=== PATIENT | female | born 1955 | race Caucasian/White ===

== ENCOUNTER 2017-06-05 15:14 | Emergency (ER) | payer OTHER ==
[~2017-06-05] VITALS: Ht 160 cm; Wt 61.4 kg
[2017-06-05 15:16] VITALS: BP 137/79; PULSE 76; RESP 14; TEMP 98.5; O2SAT 98
--- NOTE | 2017-06-05 15:53 | PD ---
HPI Chief Complaint: Musculoskeletal Complaint Time Seen by Provider: 15:41 Travel History International Travel<30 days: No Contact w/Intl Traveler<30days: No Traveled to known affect area: No History of Present Illness HPI 62-year-old female patient with history of right knee ACL repair done in April 26 in [place], is currently on vacation here in [place], and the for the past 2 weeks has been having increased pains in the right knee. She states that one day she did walk more and go downstairs but the pain that she had initially went away and then is back. She had talked to her orthopedics doctor 5 days ago and was told it was normal. She states that it hurts now with movements and walking. She denies any other issues. Modifying Factors: None Associated Signs & Symptoms: Right knee pain Risk Factors: Surgery last month PFSH Social History Tobacco Use: No Allergies-Medications (Allergen,Severity, Reaction): Coded Allergies: acetaminophen (Verified Allergy, Severe, Hallucinations, 06/05/17) meperidine (Verified Allergy, Severe, Hallucinations, 06/05/17) oxycodone (Verified Allergy, Severe, Hallucinations, 06/05/17) phenazopyridine (Verified Allergy, Severe, Swelling, 06/05/17) propoxyphene (Verified Allergy, Severe, 06/05/17) sulfamethoxazole (Verified Allergy, Severe, Swelling, 06/05/17) trimethoprim (Verified Allergy, Severe, Swelling, 06/05/17) adhesive (Verified Allergy, Intermediate, Rash, 06/05/17) naproxen (Verified Allergy, Intermediate, Hives, 06/05/17) tramadol (Verified Allergy, Intermediate, Nausea/Vomiting, 06/05/17) Reported Meds & Prescriptions Reported Meds & Active Scripts Active Reported Omeprazole 40 Mg Cap 40 Mg DAILY Ibuprofen 600 Mg Tab 600 Mg PO Q6H PRN Review of Systems Except as stated in HPI: all other systems reviewed are Neg Physical Exam Narrative GENERAL: Well-nourished, well-developed elderly white female patient in no acute distress. SKIN: Focused skin assessment warm/dry. HEAD: Normocephalic. EYES: No scleral icterus. No injection or drainage. NECK: Supple, trachea midline. No JVD or lymphadenopathy. CARDIOVASCULAR: Regular rate and rhythm without murmurs, gallops, or rubs. RESPIRATORY: Breath sounds equal bilaterally. No accessory muscle use. GASTROINTESTINAL: Abdomen soft, non-tender, nondistended. EXTREMITIES: No clubbing, cyanosis, or edema. No joint tenderness, effusion, or edema noted. Nontender range of motion of the right knee. No significant effusion identified. No calf tenderness. Bilateral Homans sign negative. MUSCULOSKELETAL: No cyanosis, or edema. BACK: Nontender without obvious deformity. No CVA tenderness. Data Data Last Documented VS Vital Signs Date Time Temp Pulse Resp B/P (MAP) Pulse Ox O2 Delivery O2 Flow Rate FiO2 06/05/17 15:16 98.5 76 14 137/79 (98) 98 Orders Orders Knee, Complete (4vws) (06/05/17 15:37) Us Leg Venous Doppler (06/05/17 15:41) [facility] Medical Decision Making Medical Screen Exam Complete: Yes Emergency Medical Condition: Yes Medical Record Reviewed: Yes Interpretation(s) Last 24 hours Impressions Knee X-Ray 06/05/17 1537 Signed Impressions: Service Date/Time: Monday, June 05, 2017 15:48 - CONCLUSION: Negative for acute process. Tim Steele MD FACR Differential Diagnosis Postop pain versus right knee strain versus acute fracture Narrative Course I do not see any signs of significant joint effusion or any tenderness on palpation, nontender range of motion. On evaluation this does not have the findings are consistent with significant septic arthritis. She apparently was seen at urgent care and sent in for joint tap. X-ray did not show any signs of acute fractures. Ultrasound shows no DVT. I have talked to the patient regarding the risks and benefits of doing a knee tap in order to evaluate for septic arthritis, including introduction of infection, bleeding, damage to structures, and the patient is declining at this time. In addition, she had talked to her orthopedic surgeon regarding the same thing just 5 days ago when he had told her that this is normal. At this point, I would refer her back to orthopedics Dr. Tate for any worsening in symptoms, and as needed. Rest the joint. The plan was discussed with her and she states understanding. Diagnosis Primary Impression: Strain of knee and leg, right Disposition: 01 DISCHARGE HOME Condition: Stable Tri Moreno MD Jun 05, 2017 15:53
--- NOTE | 2017-06-05 16:32 | RADRPT ---
EXAM DATE/TIME: 06/05/2017 15:48 [facility] COMPARISON: No previous studies available for comparison. INDICATIONS : Patient complains of right knee pain. Status post meniscus repair on April 26. Pain has increased last two weeks. MEDICAL HISTORY : None. SURGICAL HISTORY : Right knee meniscus repair. ENCOUNTER: Initial ACUITY: 2 days PAIN SCORE: 5/10 LOCATION: Right Knee FINDINGS: Four view examination of the right knee demonstrates no evidence of fracture or dislocation. Bony mi neralization is normal. The articular surfaces are intact. The suprapatellar soft tissues have a no rmal configuration. CONCLUSION: Negative for acute process. Tim Steele MD FACR on June 05, 2017 at 15:58 Board Certified Radiologist. This report was verified electronically.
[2017-06-05] MEDS ORDERED: OMEP40CA2 (16:45)
[2017-06-05] MEDS ORDERED: IBUP-232 PO (16:45)
--- NOTE | 2017-06-05 17:09 | RADRPT ---
EXAM DATE/TIME: 06/05/2017 16:25 [facility] COMPARISON: No previous studies available for comparison. INDICATIONS : Right leg pain. MEDICAL HISTORY : Right leg pain. SURGICAL HISTORY : Recent right knee surgery. ENCOUNTER: Initial ACUITY: 1 day PAIN SCORE: 5/10 LOCATION: Right leg. TECHNIQUE: Venous ultrasound of the leg was performed from the inguinal ligament to the proximal calf. Real-moira e, color Doppler and spectral tracing, compression and augmentation techniques were used. FINDINGS: There is normal compressibility of the deep venous system from the inguinal region to the proximal ca lf. No echogenic clot is seen in the lumen of the common femoral, femoral, popliteal, and posterior tibial veins. There is a normal response of the venous system to proximal and distal augmentation an d respiration. CONCLUSION: Negative exam. No sonographic or Doppler findings of deep venous thrombosis. Corey Hinojosa MD on June 05, 2017 at 17:04 Board Certified Radiologist. This report was verified electronically.
== END 2017-06-05 17:50 | disposition home or self-care (01) ==
LOC: NEPC 15:14
DX: S76.111A Strain of right quadriceps muscle, fascia and tendon, initial encounter (principal); M79.604 Pain in right leg; Z79.899 Other long term (current) drug therapy; Z88.2 Allergy status to sulfonamides; Z88.8 Allergy status to other drugs, medicaments and biological substances; Z88.5 Allergy status to narcotic agent; X58.XXXA Exposure to other specified factors, initial encounter
CPT/HCPCS: 73564; 93971; 99284